=== PATIENT | male | born 1975 | race Caucasian/White ===

== ENCOUNTER 2021-10-11 20:21 | Emergency (ER) | payer MEDICARE, OTHER ==
[2021-10-11 20:38] LABS: HEMOGLOBIN 14.7 gm/dl (14.0-17.5); RED BLOOD COUNT 4.22 M/UL (4.20-5.50)
[2021-10-11 21:00] LABS: BUN/CREATININE RATIO 13 (0-10)
== END 2021-10-12 00:10 | disposition home or self-care (01) ==
LOC: ER1 20:21
PROVIDERS: Family Medicine
DX: R56.9 Unspecified convulsions (principal); F90.9 Attention-deficit hyperactivity disorder, unspecified type; F31.9 Bipolar disorder, unspecified; F20.9 Schizophrenia, unspecified; R89.2 Abnormal level of other drugs, medicaments and biological substances in specimens from other organs, systems and tissues; R52 Pain, unspecified; I25.2 Old myocardial infarction; Z86.69 Personal history of other diseases of the nervous system and sense organs; Z88.2 Allergy status to sulfonamides; Z88.0 Allergy status to penicillin; Z88.6 Allergy status to analgesic agent
CPT/HCPCS: 70450; 80053; 80156; 80307; 81001; 82550; 82553; 83735; 84439; 84443; 84484; 85025; 85610; 93005; 99284; G0480; J2060